=== PATIENT | female | born 1980 | race Caucasian/White ===

== ENCOUNTER 2020-03-19 07:12 | Observation (INO) | payer OTHER, SELFPAY ==
--- NOTE | ~2020-03-19 | XR_ITS ---
EXAMINATION: XR chest 2V DATE: 03/19/2020 09:13 INDICATION: Fever and vomiting. TECHNIQUE: Frontal and lateral views of the chest were obtained. COMPARISON: CT abdomen and pelvis 06/16/2017 FINDINGS: There are mild airspace opacities in the lower lung zones. There is mild scarring at the eugenio ng apices. No pleural effusion or pneumothorax. The heart size is normal. IMPRESSION: 1. Mild airspace opacities in the lower lung zones, consistent with atelectasis or less likely pneumo rebecca. Reviewed, dictated and finalized at location A. IMPRESSION: 1. Mild airspace opacities in the lower lung zones, consistent with atelectasis or less likely pneumonia.
--- NOTE | ~2020-03-19 | CT_ITS ---
EXAMINATION: CT abdomen pelvis w con DATE: 03/19/2020 09:33 INDICATION: Abdominal pain. Nausea and vomiting. Fever. TECHNIQUE: Computed tomography (CT) of the abdomen and pelvis was performed with 100 mL Omnipaque 350 intravenous contrast. Automated exposure control and iterative reconstruction technique were employe d. The dose-length product was 339.60 mGy-cm. COMPARISON: CT abdomen and pelvis 06/16/2017 FINDINGS: The visualized portions of the lung bases are clear without pneumonia or pleural effusion. The heart size is normal. No pericardial effusion. The liver, spleen, gallbladder, pancreas, adrenal glands, and left kidney are normal. There is a 4 mm cyst in right kidney. There are no dilated loops of bowel. The appendix is not visualized. The left periuterine veins and left ovarian vein are enlarg ed, consistent with pelvic venous insufficiency. There is trace pelvic ascites, likely physiologic. T here are no pathologically enlarged lymph nodes. There is mild thoracic spondylosis. IMPRESSION: 1. Pelvic venous insufficiency. Reviewed, dictated and finalized at location A.
[2020-03-19] MEDS: SODIUM CHLORIDE 0.9% IV 1,000 ML 999 ML IV CONT (07:36)
[2020-03-19] MEDS: ONDANSETRON INJ 4 MG/2 ML VIAL IV PUSH ×3 (07:37→16:26)
[2020-03-19 07:39] LABS: Glucose Point of Care 144 (65-105)
[2020-03-19 07:43] VITALS: BP 138/73; PULSE 120; RESP 20; TEMP 36.5; O2SAT 96
[2020-03-19] MEDS: METOCLOPRAMIDE HCL INJ 10 MG/2 ML VIAL IV PUSH (07:56)
--- NOTE | 2020-03-19 07:58 | PC.NURSE ---
iv fluids infusing. continues with shaking, diaphoretic skin.
[2020-03-19 08:07] LABS: Basophils Absolute Auto 0.04 K/mm3 (0.00-0.10); Basophils Percent Auto 0.4 % (0.0-1.0); Eosinophils Absolute Auto 0.07 K/mm3 (0.02-0.50); Eosinophils Percent Auto 0.7 % (1.0-6.0); Hemoglobin 13.8 g/dL (12.0-15.0); Immature Granulocyte Absolute 0.03 K/mm3 (0.00-0.00); Immature Granulocyte Percent A 0.3 % (0.0-0.0); Lymphocytes Absolute Auto 1.32 K/mm3 (1.10-4.50); Lymphocytes Percent Auto 13.1 % (18.0-42.0); Mean Corpuscular HGB Conc 33.7 g/dL (32.0-36.0); Mean Corpuscular Hemoglobin 30.9 pg (27.0-31.0); Mean Corpuscular Volume 91.9 fL (78.0-102.0); Mean Platelet Volume 10.8 fl (9.2-11.8); Monocytes Absolute Auto 0.32 K/mm3 (0.10-0.90); Monocytes Percent Auto 3.2 % (2.0-11.0); Neutrophils Absolute Auto 8.3 K/mm3 (1.7-7.2); Neutrophils Percent Auto 82.3 % (50.0-70.0); Platelet Count Result 178 K/mm3 (150-420); Red Blood Count 4.46 M/mm3 (4.20-5.40); Red Cell Distribution Width 13.2 % (11.6-14.4); White Blood Count 10.1 K/mm3 (4.8-10.8)
[2020-03-19 08:19] LABS: INR 1.1; Partial Thromboplastin Time 26.5 SEC (22.3-31.6); Prothrombin Time 11.4 Seconds (9.64-11.0)
[2020-03-19 08:20] LABS: Alanine Aminotransferase 11 U/L (14-59); Albumin Level 4.1 g/dL (3.4-5.0); Alkaline Phosphatase 71 U/L (46-116); Anion Gap 14.9 mmol/L (7-16); Aspartate Amino Transferase 13 U/L (15-37); Bilirubin,Total 0.5 mg/dL (0.00-1.00); Blood Urea Nitrogen 13 mg/dL (7-18); CRP 0.3 mg/dL (0.0-0.9); Calcium 8.9 mg/dL (8.5-10.1); Carbon Dioxide 25 mmol/L (21-32); Chloride 107 mmol/L (98-108); Estimated CRCL calculation 69 ml/min; Estimated Glomerular Filt Rate > 60; Glucose 165 mg/dL (70-99); Osmolality Calculated 300 mOsm/kg (285-295); Potassium 3.9 mmol/L (3.5-5.1); Sodium 143 mmol/L (136-145); Total Protein 7.5 g/dL (6.4-8.2)
[2020-03-19 08:22] LABS: Appearance Urine Clear (Clear); Bilirubin Urine Negative (Negative); Color Urine Yellow (Yellow); Glucose Urine UA Negative (Negative); Ketones Urine 1+ (Negative); Leukocyte Esterase Ur Negative LEU/UL (Negative); Nitrate Urine Negative (Negative); Protein Urine Negative (Negative); Specific Grav Ur 1.025 (1.010-1.020)
[2020-03-19 08:23] LABS: Lactic Acid Reflex 3.5 mmol/L (0.4-2.0)
[2020-03-19 08:33] LABS: Add Urine Microscopic? YES; Bacteria Urine Trace /hpf; Blood Urine Trace-Intact (Negative); Mucus Urine Few /lpf; Squamous Epithelial Cell Urine Moderate /hpf (Few); WBC Urine 0-3 /hpf (0-3)
[2020-03-19] MEDS: SODIUM CHLORIDE 0.9% IV 1,000 ML 500 ML IV CONT (08:34)
[2020-03-19 08:35] VITALS: BP 111/70; PULSE 59; RESP 20; O2SAT 97
[2020-03-19 08:46] LABS: Pregnancy On Board Control Positive; Urine Pregnancy Test Negative
[2020-03-19 08:48] LABS: Specific Gravity Ur 1.025 (1.010-1.035)
[2020-03-19 08:56] LABS: Amphetamine Screen Urine Negative (Negative); Barbiturate Screen Urine Negative (Negative); Benzodiazepines Screen Urine Negative (Negative); Cannabinoid Screen Urine Positive (Negative); Cocaine Screen Urine Negative (Negative); Methadone Screen Urine Negative (Negative); Opiate Screen Urine Negative (Negative); Phencyclidine Screen Urine Negative (Negative); Salicylate 2.9 mg/dL (2.8-20.0)
[2020-03-19 08:58] LABS: Acetaminophen 0 ug/mL (10-30); Ethanol < 3 mg/dL (0-6)
--- NOTE | 2020-03-19 09:03 | PC.NURSE ---
pt to xray per stretcher.
--- NOTE | 2020-03-19 09:29 | PC.NURSE ---
patient returns from xray per stretcher.
--- NOTE | 2020-03-19 09:51 | PC.NURSE ---
awaiting medical records requested for past visits from [facility]. release of information faxed to [facility]. pt resting per cot. report to vira weldon.
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
[2020-03-19 10:08] VITALS: BP 103/79; PULSE 88; O2SAT 98
[2020-03-19 10:42] VITALS: BMI 20.8
[2020-03-19 11:04] LABS: Reflex Lactic Acid Yes or No Add Lactic
--- NOTE | 2020-03-19 11:08 | PC.NURSE ---
1030 white female from with c/o of n/v. offered her a sip of water to rinse mouth and she guzzles pitcher. now is gagging and throwing up clear stomach content. lungs cta. alert and orient. bs present. no edema. denies pain. cool cloth applied to forehead. made sure water pitcher is out of reach. explained co-vid precautions. padmini constantino
[2020-03-19] MEDS: DEXTROSE 5%/LACTATED RINGERS 1,000 ML 100 ML IV CONT ×2 (11:39→20:41)
[2020-03-19 11:44] LABS: Lactic Acid 2.3 mmol/L (0.4-2.0)
--- NOTE | 2020-03-19 12:46 | ECG_ITS ---
Measurements Intervals Bond Rate: 65 P: 65 NM: 119 QRS: 72 QRSD: 98 T: 61 QT: 421 QTc: 439 Interpretive Statements SINUS RHYTHM WITH SHORT NM INTERVAL BORDERLINE ECG Electronically Signed On 03-19-2020 14:09:40 CDT by Evin Henderson D.O.
[2020-03-19] MEDS: CAPSAICIN 0.025% CREAM 60 GM TUBE 1 APPLIC TOPICAL ×2 (13:39→18:02)
[2020-03-19] MEDS: PROMETHAZINE HCL 25 MG/ML AMPUL 12.5 MG IV PUSH ×2 (13:40→18:02)
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
[2020-03-19 16:00] VITALS: BP 118/72; PULSE 70; PULSE 84; RESP 16; TEMP 36.6; O2SAT 97
[2020-03-19 16:36] LABS: Magnesium 1.6 mg/dL (1.8-2.4); Phosphorus 3.6 mg/dL (2.6-4.7)
--- NOTE | 2020-03-19 16:36 | PC.NURSE ---
1230 cont to heave and have clear to emesis. sm amt and has dry heaves.
--- NOTE | 2020-03-19 16:38 | PC.NURSE ---
1640 claims she had anothedr emesis. one time med given
[2020-03-19 18:17] LABS: Lactic Acid 1.8 mmol/L (0.4-2.0)
[2020-03-19 20:00] VITALS: PULSE 69
[2020-03-19] MEDS: PANTOPRAZOLE SODIUM IV 40 MG VIAL IV PUSH (20:42)
--- NOTE | 2020-03-19 21:21 | PC.NURSE ---
notified of low Mag level, will put in orders
[2020-03-19] MEDS: MAGNESIUM SULF 2 GM/WATER 50ML 2 GM/50 ML BAG IVPB (21:49)
--- NOTE | 2020-03-19 23:44 | PC.NURSE ---
Pt resting quietly in bed; Lungs are clear bilaterally and SAO2 is 96% on room air. Abdomen is soft and non tender with hypoactive bowel sounds x4 quads. Pt had an episode of dry heaves and nausea but no emesis. Pt doesnt voice any c/o discomfort.
[2020-03-20] VITALS: BP 120/78; PULSE 78; RESP 20; TEMP 36.4; O2SAT 96
[2020-03-20] MEDS: CAPSAICIN 0.025% CREAM 60 GM TUBE 1 APPLIC TOPICAL ×3 (00:16→12:42)
--- NOTE | 2020-03-20 00:37 | PC.NURSE ---
0016 Pt given Capsaicin 0.025% cream to apply to her abdomen and upper arms as ordered.
[2020-03-20] MEDS: PROMETHAZINE HCL 25 MG/ML AMPUL 12.5 MG IV PUSH (01:14)
--- NOTE | 2020-03-20 01:26 | PC.NURSE ---
0114 Pt given Promethazine 12.5 mg IVP as ordered.
[2020-03-20] MEDS: ONDANSETRON INJ 4 MG/2 ML VIAL IV PUSH ×2 (02:16→07:35)
--- NOTE | 2020-03-20 02:18 | PC.NURSE ---
Pt sitting at bedside having dry heaves. Pt c/o being nauseated and having green bile emesis. Pt given ondansetron 4 mg IVP to relieve nausea and vomiting.
--- NOTE | 2020-03-20 03:28 | PC.NURSE ---
Pt asleep and no signs of nausea noted. IV fluid continues to infuse as ordered.
[2020-03-20 04:00] VITALS: BP 110/77; PULSE 56; RESP 20; TEMP 37.1; O2SAT 96
--- NOTE | 2020-03-20 04:22 | PC.NURSE ---
Pt resting quietly in bed and had an episode of dry heaves but no emesis. IV fluid continues to infuse as ordered.
[2020-03-20 05:01] LABS: Basophils Absolute Auto 0.02 K/mm3 (0.00-0.10); Basophils Percent Auto 0.2 % (0.0-1.0); Hemoglobin 13.1 g/dL (12.0-15.0); Immature Granulocyte Absolute 0.03 K/mm3 (0.00-0.00); Immature Granulocyte Percent A 0.3 % (0.0-0.0); Lymphocytes Absolute Auto 1.05 K/mm3 (1.10-4.50); Lymphocytes Percent Auto 10.4 % (18.0-42.0); Mean Corpuscular HGB Conc 33.6 g/dL (32.0-36.0); Mean Corpuscular Hemoglobin 30.3 pg (27.0-31.0); Mean Corpuscular Volume 90.1 fL (78.0-102.0); Mean Platelet Volume 10.3 fl (9.2-11.8); Monocytes Absolute Auto 0.69 K/mm3 (0.10-0.90); Monocytes Percent Auto 6.9 % (2.0-11.0); Neutrophils Absolute Auto 8.3 K/mm3 (1.7-7.2); Neutrophils Percent Auto 82.2 % (50.0-70.0); Platelet Count Result 233 K/mm3 (150-420); Red Blood Count 4.33 M/mm3 (4.20-5.40); Red Cell Distribution Width 13.3 % (11.6-14.4); White Blood Count 10.1 K/mm3 (4.8-10.8)
[2020-03-20 05:18] LABS: Alanine Aminotransferase 12 U/L (14-59); Albumin Level 3.8 g/dL (3.4-5.0); Alkaline Phosphatase 66 U/L (46-116); Anion Gap 11.7 mmol/L (7-16); Aspartate Amino Transferase 16 U/L (15-37); Bilirubin,Total 0.3 mg/dL (0.00-1.00); Blood Urea Nitrogen 10 mg/dL (7-18); Calcium 8.8 mg/dL (8.5-10.1); Carbon Dioxide 28 mmol/L (21-32); Chloride 106 mmol/L (98-108); Estimated CRCL calculation 90 ml/min; Estimated Glomerular Filt Rate > 60; Glucose 133 mg/dL (70-99); Osmolality Calculated 295 mOsm/kg (285-295); Potassium 3.7 mmol/L (3.5-5.1); Sodium 142 mmol/L (136-145); Total Protein 7.1 g/dL (6.4-8.2)
--- NOTE | 2020-03-20 05:21 | PC.NURSE ---
Pt asleep and no signs of nausea noted. IV fluid continues to infuse as ordered.
[2020-03-20 05:25] LABS: Lactic Acid 1.3 mmol/L (0.4-2.0)
--- NOTE | 2020-03-20 06:18 | PC.NURSE ---
Pt asleep and no signs of nausea or discomfort noted. IV fluid continues to infuse as ordered.
--- NOTE | 2020-03-20 06:45 | PC.NURSE ---
Pt given Capsaicin cream to apply to her abdomen and upper arms as ordered.
[2020-03-20] MEDS: DEXTROSE 5%/LACTATED RINGERS 1,000 ML 100 ML IV CONT (07:19)
[2020-03-20 08:00] VITALS: BP 118/74; PULSE 70; RESP 16; TEMP 36.9; O2SAT 98
[2020-03-20] MEDS: PANTOPRAZOLE SODIUM IV 40 MG VIAL IV PUSH (09:51)
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
[2020-03-20] MEDS: MAGNESIUM OXIDE 400 MG TABLET PO (11:21)
[2020-03-20 12:03] LABS: Lactate Dehydrogenase 166 U/L (81-234); Lipase 86 U/L (73-393)
[2020-03-20 12:09] LABS: Magnesium 2.1 mg/dL (1.8-2.4); Thyroid Stimulating Hormone Reflex 2.67 u/IU/mL (0.36-3.74)
[2020-03-20 13:29] LABS: SARS-CoV-2 RNA PCR Negative
--- NOTE | 2020-03-20 14:09 | PC.NURSE ---
1410 has denies any further n/v. does sip on clear liquids and tolerating. co-vid and walked to new room 227. gait steady. cont to deny any n/v. orederd chicken noodle soup and and toast. padmini constantino
[2020-03-20 16:00] VITALS: BP 102/62; PULSE 62; RESP 16; TEMP 36.9; O2SAT 98
--- NOTE | 2020-03-20 16:42 | PC.NURSE ---
1415 soup and toast ordered. denies any abd pain or n/v. no dry heaves.
--- NOTE | 2020-03-20 16:43 | PC.NURSE ---
1500 tolerated 1/2 piece toast and ate noodles out of soup. still not c/o pain or n/v
--- NOTE | 2020-03-20 17:37 | PC.NURSE ---
notified that patient ate toast, soup, and shebert. Denies N/V. Patient stated she wanted to be discharged home this evening. MD notified of patient request, MD stated that he would like her to stay for tonight and go home in the morning. Nurse explained that to patient.
--- NOTE | 2020-03-20 17:49 | PC.NURSE ---
Patient stated she wanted to speak to MD or would leave AMA. MD notified and came up to speak to patient. Patient refuses to stay. stated to let her go AMA.
--- NOTE | 2020-03-20 18:18 | PC.NURSE ---
Patient called friend for ride home. Patient dressed and left building.
--- NOTE | 2020-03-20 18:44 | PC.NURSE ---
1730 pt claims since see has held down ice cream, soup, and toast she wants to go now.
--- NOTE | 2020-03-20 18:45 | PC.NURSE ---
1744 [employer] benjamin doctor wants her to stay. claims she is now going ama. padmini constantino
== END 2020-03-20 18:10 | disposition left against medical advice (07) ==
LOC: CHSED 07:26 → CHS2ND 10:04
PROVIDERS: Nurse Practitioner; Admitting Provider Emergency Medicine; Emergency Provider Emergency Medicine; Visit Provider Emergency Medicine
DX: E86.0 Dehydration (principal); F12.90 Cannabis use, unspecified, uncomplicated; R11.2 Nausea with vomiting, unspecified; F41.9 Anxiety disorder, unspecified; Z20.828 Contact with and (suspected) exposure to other viral communicable diseases
CPT/HCPCS: 36415; 71046; 74177; 80053; 80307; 81001; 81025; 83605; 83615; 83690; 83735; 84100; 84443; 85025; 85610; 85730; 86140; 87040; 87086; 87635; 93005; 96361; 96365; 96374; 96375; 96376; 99285; A9270; C9113; C9803; G0378; G0379; J2405; J2550; J2765; J3475; J7030; J7121; Q9965; U0003

== ENCOUNTER 2021-01-07 19:00 | Emergency (ER) | payer OTHER, SELFPAY ==
--- NOTE | 2021-01-07 19:03 | ED.NAVMDI ---
HPI - Nausea/Vomiting/Diarrhea General Chief complaint: Nausea/Vomiting/Diarrhea Stated complaint: throwing up for 24 hours Source: patient and RN notes reviewed Mode of arrival: ambulatory Limitations: no limitations History of Present Illness MD elicited complaint: nausea, vomiting and abdominal pain Pertinent past history: cyclical vomiting Onset (ago): day(s) (1) Description of vomiting: bilious Location of pain: diffuse Pain consistency: intermittent and colicky Severity: moderate Quality: cramping Exacerbating factors: eating Relieving factors: none Context: marijuana use Treatment prior to arrival: none Related Data Allergies Allergy/AdvReac Type Severity Reaction Status Date / Time No Known Allergies Allergy Verified 01/07/21 19:45 Review of Systems Review of Systems: All systems reviewed & are unremarkable except as noted in HPI and below Constitutional: Constitutional: Denies chills and Denies fever(s) Respiratory: Respiratory: Denies cough and Denies dyspnea Gastrointestinal: Gastrointestinal: Denies constipation and Denies diarrhea Genitourinary: Genitourinary: Reports no additional female genitourinary complaints, Denies nocturia and Denies dysuria PMFSH Past Medical History Medical History (Updated 01/07/21 @ 20:40 by Zain Landa MD) Anxiety Surgical History Surgical History History of History of intestinal surgery Hx of tubal ligation Social History Social History (Updated 01/07/21 @ 19:16 by Zain Landa MD) Smoking status: Never smoker Second hand tobacco smoke exposure: No Alcohol intake: never Substance use: current Substance use type: marijuana Other substance usage details: Daily Gender identity (if verbalized by the patient): Female Spiritual care concerns: No Exam Const: General: healthy appearing and no acute distress Nutritional Appearance: well nourished and thin Orientation/consciousness: patient oriented x3 Other: Female nurse in room during examination. HENMT: Head: normal to inspection Ears: external ears normal Face and sinus: normal facial exam Mouth: Yes moist mucous membranes Eyes: Cornea: corneas normal Pupils: Equal, round and reactive pupils present EOM: EOMs intact bilaterally Neck: Neck: normal visual inspection Resp: Effort & Inspection: normal respiratory effort Auscultation: clear to auscultation bilaterally Cardio: Rate: regular rate Rhythm: regular rhythm GI: GI Palp: Yes Soft to palpation, Yes Tenderness to palpation present (GI) ( Generalized), No Guarding due to palpation present (GI) and No Rebound tenderness present Auscultation: normal bowel sounds Back/Spine/Pelvis: Cervical Spine: cervical ROM normal Thoracic/Lumbar Spine: thoraco-lumbar ROM normal Skin: General skin exam: normal color Rashes: no rashes Neuro: General: patient oriented x3, moves all extremities, no meningeal signs and no focal motor deficits Speech: normal speech Gait exam (Neuro): Normal gait present Extrem: General: normal to inspection and no clubbing, cyanosis or edema Psych: Appearance: grossly normal and well kempt Mental Status: mental status grossly normal Affect: normal affect Attitude: cooperative Thought content: Yes Normal thought content present Course Vital Signs Vital signs: Vital Signs Temperature 36.3 C L 01/07/21 19:28 Pulse Rate 67 01/07/21 19:28 Respiratory Rate 20 01/07/21 19:28 Blood Pressure 116/64 01/07/21 19:28 Pulse Oximetry 96 01/07/21 19:28 Temperature 36.7 C 01/07/21 22:12 Pulse Rate 82 01/07/21 22:12 Respiratory Rate 20 01/07/21 22:12 Blood Pressure 116/64 01/07/21 19:28 Pulse Oximetry 98 01/07/21 22:12 MDM - Nausea/Vomiting/Diarrhea Lab Data Result diagrams: 01/07/21 19:27 01/07/21 19:27 Labs: Lab Results 01/07/21 01/07/21 01/07/21 Range/Units 19:27 19:
[2021-01-07] MEDS: PROMETHAZINE HCL 25 MG/ML AMPUL IM (19:25)
[2021-01-07 19:28] VITALS: BP 116/64; PULSE 67; RESP 20; TEMP 36.3; O2SAT 96
[2021-01-07 19:32] LABS: Basophils Absolute Auto 0.01 K/mm3 (0.00-0.10); Basophils Percent Auto 0.1 % (0.0-1.0); Hematocrit 39.2 % (35.0-49.0); Hemoglobin 13.5 g/dL (12.0-15.0); Immature Granulocyte Absolute 0.03 K/mm3 (0.00-0.00); Immature Granulocyte Percent A 0.3 % (0.0-0.0); Lymphocytes Absolute Auto 1.12 K/mm3 (1.10-4.50); Lymphocytes Percent Auto 10.7 % (18.0-42.0); Mean Corpuscular HGB Conc 34.4 g/dL (32.0-36.0); Mean Corpuscular Hemoglobin 30.6 pg (27.0-31.0); Mean Corpuscular Volume 88.9 fL (78.0-102.0); Mean Platelet Volume 10.2 fl (9.2-11.8); Monocytes Absolute Auto 0.65 K/mm3 (0.10-0.90); Monocytes Percent Auto 6.2 % (2.0-11.0); Neutrophils Absolute Auto 8.7 K/mm3 (1.7-7.2); Neutrophils Percent Auto 82.7 % (50.0-70.0); Platelet Count Result 342 K/mm3 (150-420); Red Blood Count 4.41 M/mm3 (4.20-5.40); White Blood Count 10.5 K/mm3 (4.8-10.8)
[2021-01-07 19:32] LABS: Add Urine Microscopic? YES; Appearance Urine Clear (Clear); Bilirubin Urine Negative (Negative); Blood Urine 1+ (Negative); Color Urine Yellow (Yellow); Glucose Urine UA Negative (Negative); Ketones Urine 2+ (Negative); Leukocyte Esterase Ur Negative LEU/UL (Negative); Nitrate Urine Negative (Negative); Protein Urine 3+ (Negative); Specific Grav Ur 1.025 (1.010-1.020); Urobilinogen Urine 0.2 mg/dL (0.2-1.0)
[2021-01-07 19:39] LABS: Bacteria Urine 1+ /hpf; Mucus Urine Few /lpf; Squamous Epithelial Cell Urine Many /hpf (Few); WBC Urine 0-3 /hpf (0-3)
[2021-01-07 19:46] LABS: Alanine Aminotransferase 26 U/L (14-59); Albumin Level 4.7 g/dL (3.4-5.0); Alkaline Phosphatase 83 U/L (46-116); Anion Gap 11 mmol/L (8-16); Aspartate Amino Transferase 18 U/L (15-37); Bilirubin,Total 0.6 mg/dL (0.00-1.00); Blood Urea Nitrogen 17 mg/dL (7-18); Calcium 10.1 mg/dL (8.5-10.1); Carbon Dioxide 29 mmol/L (21-32); Chloride 97 mmol/L (98-108); Estimated CRCL calculation 66 ml/min; Estimated Glomerular Filt Rate > 60; Glucose 136 mg/dL (70-99); Lipase 106 U/L (73-393); Osmolality Calculated 287 mOsm/kg (285-295); Potassium 2.9 mmol/L (3.5-5.1); Sodium 137 mmol/L (136-145)
[2021-01-07 19:47] LABS: CRP 0.7 mg/dL (0.0-0.9)
[2021-01-07] MEDS: LACTATED RINGERS 1,000 ML 999 ML IV CONT (20:15)
[2021-01-07] MEDS: KCL 20 MEQ/SW 100 ML 100 ML 50 MEQ IVPB (20:20)
[2021-01-07 21:30] VITALS: PULSE 80; RESP 20; O2SAT 99
[2021-01-07] MEDS: ONDANSETRON HCL ODT 4 MG TABLET PO (22:10)
[2021-01-07 22:12] VITALS: PULSE 82; RESP 20; TEMP 36.7; O2SAT 98
== END 2021-01-07 22:31 | disposition home or self-care (01) ==
LOC: CHSED 19:01
PROVIDERS: Emergency Provider Emergency Medicine
DX: R11.10 Vomiting, unspecified (principal); F12.90 Cannabis use, unspecified, uncomplicated; E87.6 Hypokalemia
CPT/HCPCS: 36415; 80053; 81001; 83690; 85025; 86140; 96365; 96366; 96372; 99283; 99284; A9270; J2550; J3480; J7120

== ENCOUNTER 2021-09-09 12:15 | Outpatient (NON) | payer OTHER, SELFPAY | END 2021-09-09 12:16 | disposition home or self-care (01) | PROVIDERS: Visit Provider Nurse Practitioner Family | DX: R30.0 Dysuria (principal) | CPT/HCPCS: 87077; 87086; 87088; 87186 ==

== ENCOUNTER 2024-08-16 13:43 | Emergency (ER) | payer BC, OTHER, SELFPAY ==
[2024-08-16] VITALS (7 sets, daily range): BP systolic 118–140; BP diastolic 62–84; PULSE 70–81; RESP 16–18; TEMP 36.7; O2SAT 96–100
--- NOTE | ~2024-08-16 | CT_ITS ---
CT abdomen pelvis w con Ordering provider: Rosey Bravo MD History: 44 years Female with . abdominal pain after eating today, N . Comparison: None. Technique: CT abdomen and pelvis with IV and without oral contrast. Automated exposure control and it erative reconstruction technique were employed. The dose-length product was 213.52 mGy-cm. 100 mL Omn ipaque 350 was given IV. Findings: VISUALIZED LOWER CHEST: Normal. UPPER ABDOMINAL ORGANS: Liver: Normal. Gallbladder: Normal. Spleen: Normal. Stomach/duodenum: Normal. Pancreas: Normal. Adrenals: Normal. Kidneys: Tiny cyst in the right kidney midpole otherwise normal. PELVIC ORGANS: The bladder is underfilled. Slightly thickened wall is seen. Evaluation for cystitis a dvised. Uterus and ovaries are unremarkable. BOWEL AND MESENTERY: Colon: No evidence of diverticulitis.. Appendix is not demonstrated. Small Bowel: Normal. No obstruction. Peritoneum/mesentery: No free air or free fluid. No mesenteric lymphadenopathy. RETROPERITONEUM: Normal aorta. No retroperitoneal lymphadenopathy. MUSCULOSKELETAL: Superficial soft tissues: The superficial soft tissues are normal. Bones: Normal spine. IMPRESSION: 1. No evidence of appendicitis, diverticulitis or intestinal obstruction. Reviewed, dictated and finalized at location A. R [employer]TING [employer]
--- NOTE | 2024-08-16 13:54 | ED_ITS ---
HPI - Nausea/Vomiting/Diarrhea General Chief complaint: Nausea/Vomiting/Diarrhea Stated complaint: VOMITING Time Seen by Provider: 08/16/24 13:54 Source: patient Related Data Home Medications Medication Instructions Recorded Confirmed albuterol sulfate 90 mcg/actuation 1 puff inhalation Q4H PRN Wheezing 09/09/21 08/16/24 aerosol inhaler Allergies Allergy/AdvReac Type Severity Reaction Status Date / Time No Known Allergies Allergy Verified 08/16/24 13:51 [facility] Past Medical History Medical History (Updated 08/16/24 @ 15:55 by Rosey Bravo MD) Anxiety Asthma Surgical History Surgical History History of History of intestinal surgery Hx of tubal ligation Social History Social History Smoking status: Never smoker Second hand tobacco smoke exposure: No Alcohol intake: never Substance use: current Substance use type: marijuana Other substance usage details: Daily Living arrangements: with family Gender identity (if verbalized by the patient): Female Sexual Orientation (if Verbalized by the Patient): Straight or Heterosexual Spiritual care concerns: No Course Vital Signs Vital signs: Vital Signs Temperature 36.7 C 08/16/24 13:43 Pulse Rate 81 08/16/24 13:43 Respiratory Rate 16 08/16/24 13:43 Blood Pressure 124/82 08/16/24 13:43 Pulse Oximetry 98 08/16/24 13:43 Oxygen Delivery Room Air 08/16/24 13:43 Temperature 36.7 C 08/16/24 13:43 Pulse Rate 81 08/16/24 13:43 Respiratory Rate 16 08/16/24 13:43 Blood Pressure 124/82 08/16/24 13:43 Pulse Oximetry 98 08/16/24 13:43 Oxygen Delivery Room Air 08/16/24 13:43 MDM - Nausea/Vomiting/Diarrhea MDM Narrative Medical decision making narrative: patient presents with nausea, vomiting started last night. She denies any fever diarrhea. Vital signs are stable Physical examination showing patient holding vomiting bag in hand with severe dry heaves. Differential diagnosis anxiety like symptoms, cyclic vomiting syndrome, gastritis, esophagitis, pancreatitis, gastroenteritis. Blood workup today included CBC, CMP, lipase showed potassium 3.3 otherwise insignificant Urinalysis showed no evidence of infection CT abdomen and pelvis with IV contrast showed no acute abdominal process Stress induced, cyclic vomiting syndrome is my concern. Patient's symptoms improved on IV fluid, Benadryl, Reglan and Zofran. Differential Diagnosis Differential diagnosis: Likely other ( As above) Medical Records Attestation: I reviewed the patient's medical records. Lab Data Attestation: I reviewed the patient's lab results. 08/16/24 14:16 08/16/24 14:16 Labs: Lab Results 08/16/24 08/16/24 Range/Units 14:16 14:20 WBC 8.1 (4.8-10.8) K/mm3 RBC 4.43 (4.20-5.40) M/mm3 Hgb 13.0 (12.0-15.0) g/dL Hct 37.4 (35.0-49.0) % MCV 84.4 (78.0-102.0) fL MCH 29.3 (27.0-31.0) pg MCHC 34.8 (32-36) g/dL RDW 15.0 H (11.6-14.4) % Plt Count 294 (150-420) K/mm3 MPV 10.0 (9.2-11.8) fl Immature Gran % (Auto) 0.4 H (0.0-0.0) % Neut % (Auto) 87.5 H (50.0-70.0) % Lymph % (Auto) 7.4 L (18.0-42.0) % [place] % (Auto) 4.6 (2.0-11.0) % Eos % (Auto) 0.1 L (1.0-6.0) % Baso % (Auto) 0.0 (0.0-1.0) % Lymph # (Auto) 0.60 L (1.10-4.50) K/mm3 [place] # (Auto) 0.37 (0.10-0.90) K/mm3 Eos # (Auto) 0.01 L (0.02-0.50) K/mm3 Baso # (Auto) 0.00 (0.00-0.10) K/mm3 Abs Immat Gran (auto) 0.03 H (0.00-0.00) K/mm3 Absolute Neuts (auto) 7.06 (1.70-7.20) K/mm3 Absolute Nucleated RBC 0.00 (0.00-0.00) K/mm3 Nucleated RBC % 0.0 (0-0.0) % Sodium 139 (136-145) mmol/L Potassium 3.3 L (3.5-5.1) mmol/L Chloride 101 (98-108) mmol/L Carbon Dioxide 24 (21-32) mmol/L Anion Gap 14 H (4-12) mmol/L BUN 15 (7-18) mg/dL Creatinine 0.87 (0.55-1.02) mg/dL Estim Creat Clear Calc 77 ml/min Estimated GFR > 60 (59 - ) Glucose 148 H (70-99) mg/dL POC Capillary Glucose 133 H (65-105) mg/dl Calculated Osmolality 291 (285-295) mOsm/kg Calcium 10.0 (8.5-10.1) mg/dL Total Bilirubin 0.5 (0.00-1.00) mg/dL AST 14 L (15-37) U/L ALT 17 (14-59) U/L Alkaline Phosphatase 87 (46-116) U/L Total Protein 8.2 (6.4-8.2) g/dL Albumin 4.5 (3.4-5.0) g/dL Lipase 27 (16-77) U/L Influenza A (RT-PCR) Negative (Negative) Influenza B (RT-PCR) Negative (Negative) RSV (RT-PCR) Negative (Negative) SARS-CoV-2 RNA (RT-PCR) Negative (Negative) Imaging Data Radiologist's impression: Impressions Abdomen/Pelvis CT 08/16/24 15:31 IMPRESSION: 1. No evidence of appendicitis, diverticulitis or intestinal obstruction. Critical Care Time Critical Care Time Critical Care Time: Yes Total Critical Care Time: 30 Discharge Plan Discharge Clinical Impression: Vomiting, Acute hypokalemia, Anxiety Patient Disposition: Home, Self-Care Condition: Improved Instructions: Hypokalemia (ED), Acute Nausea and Vomiting (ED), Anxiety (ED) Additional Instructions: Return if symptoms are worsening , call your family physician for appointment, take Tylenol as as needed for aches and pain, continue home medications. Prescriptions: New promethazine 25 mg suppository 25 mg RECTAL Q4H PRN (Reason: nausea and vomiting) Qty: 14 0RF potassium chloride 20 mEq tablet extended release 20 meq PO BID Qty: 10 0RF No Action albuterol sulfate 90 mcg/actuation HFA aerosol inhaler 1 puff inhalation Q4H PRN (Reason: Wheezing) Follow-up/Referrals: Claudette Eric NP [Primary Care Provider] - Stand Alone Forms: Work/School Release IP
[2024-08-16 14:22] LABS: Glucose Point of Care 133 mg/dl (65-105)
[2024-08-16 14:22] LABS: Eosinophils Absolute Auto 0.01 K/mm3 (0.02-0.50); Eosinophils Percent Auto 0.1 % (1.0-6.0); Hematocrit 37.4 % (35.0-49.0); Immature Granulocyte Absolute 0.03 K/mm3 (0.00-0.00); Immature Granulocyte Percent A 0.4 % (0.0-0.0); Lymphocytes Percent Auto 7.4 % (18.0-42.0); Mean Corpuscular HGB Conc 34.8 g/dL (32-36); Mean Corpuscular Hemoglobin 29.3 pg (27.0-31.0); Mean Corpuscular Volume 84.4 fL (78.0-102.0); Monocytes Absolute Auto 0.37 K/mm3 (0.10-0.90); Monocytes Percent Auto 4.6 % (2.0-11.0); Neutrophils Absolute Auto 7.06 K/mm3 (1.70-7.20); Neutrophils Percent Auto 87.5 % (50.0-70.0); Platelet Count Result 294 K/mm3 (150-420); Red Blood Count 4.43 M/mm3 (4.20-5.40); White Blood Count 8.1 K/mm3 (4.8-10.8)
[2024-08-16] MEDS: SODIUM CHLORIDE 0.9% IV 2,000 ML 999 ML IV CONT (14:33)
[2024-08-16] MEDS: diphenhydrAMINE HCl INJ 50 MG/ML VIAL IV PUSH (14:33)
[2024-08-16] MEDS: ONDANSETRON INJ 4 MG/2 ML VIAL IV PUSH (14:35)
[2024-08-16] MEDS: METOCLOPRAMIDE HCL INJ 10 MG/2 ML VIAL IV PUSH (14:36)
[2024-08-16 14:38] LABS: Alanine Aminotransferase 17 U/L (14-59); Albumin Level 4.5 g/dL (3.4-5.0); Alkaline Phosphatase 87 U/L (46-116); Anion Gap 14 mmol/L (4-12); Aspartate Amino Transferase 14 U/L (15-37); Bilirubin,Total 0.5 mg/dL (0.00-1.00); Blood Urea Nitrogen 15 mg/dL (7-18); Carbon Dioxide 24 mmol/L (21-32); Chloride 101 mmol/L (98-108); Estimated CRCL calculation 77 ml/min; Estimated Glomerular Filt Rate > 60; Glucose 148 mg/dL (70-99); Lipase 27 U/L (16-77); Osmolality Calculated 291 mOsm/kg (285-295); Potassium 3.3 mmol/L (3.5-5.1); Sodium 139 mmol/L (136-145); Total Protein 8.2 g/dL (6.4-8.2)
--- NOTE | 2024-08-16 14:45 | PC.NURSE ---
PT IS LYING ON STRETCHER WITH LIGHTS OFF, WARM BLANKET PROVIDED, AND REPOSITIONED. PT DENIES ANY NEEDS OR COMPLAINTS. WILL CONTINUE TO MONITOR.
[2024-08-16 14:57] LABS: SARS-CoV-2 RNA PCR Negative (Negative)
[2024-08-16 15:12] LABS: Influenza B QL RT-PCR Negative (Negative)
[2024-08-16 15:13] LABS: Influenza A QL RT-PCR Negative (Negative); RSV RNA, RT-PCR Negative (Negative)
--- NOTE | 2024-08-16 15:51 | PC.NURSE ---
ARRIVED AND DROPPED OFF CELL PHONE. PT HAS BEEN RESTING ON STRETCHER SINCE RETURN FROM CT WITHOUT DISTRESS. IVF INFUSING WITHOUT DIFFICULTY. NO RETCHING OR EMESIS NOTED SINCE RETURN FROM CT. WILL CONTINUE TO MONITOR.
[2024-08-16] MEDS: POTASSIUM CHLORIDE 20 MEQ PACKET (FOR LIQUID) PO (16:08)
--- NOTE | 2024-08-16 16:09 | PC.NURSE ---
PT IS AWAITING IVF INFUSION COMPLETION PRIOR TO DC HOME.
== END 2024-08-16 16:50 | disposition home or self-care (01) ==
PROVIDERS: Emergency Provider Emergency Medicine; PCP Nurse Practitioner Family
DX: R11.10 Vomiting, unspecified (principal); E87.6 Hypokalemia; F41.9 Anxiety disorder, unspecified; J45.909 Unspecified asthma, uncomplicated; Z79.51 Long term (current) use of inhaled steroids; F12.90 Cannabis use, unspecified, uncomplicated; Z20.822 Contact with and (suspected) exposure to COVID-19
CPT/HCPCS: 36415; 74177; 80053; 82948; 83690; 85025; 87637; 96361; 96374; 96375; 99284; A9270; J1200; J2405; J2765; J7030; Q9967